=== PATIENT | female | born 1990 | race African-American/Black ===

== ENCOUNTER 2018-09-28 00:36 | Emergency (ER) | payer OTHER ==
[~2018-09-28] VITALS: Ht 160 cm; Wt 68.0 kg
[2018-09-28 01:30] VITALS: BP 100/66
== END 2018-09-28 01:33 | disposition left against medical advice (07) ==
LOC: EDBD 00:36 → ER 00:41
DX: F41.9 Anxiety disorder, unspecified (principal); Z53.21 Procedure and treatment not carried out due to patient leaving prior to being seen by health care provider